=== PATIENT | male | born 1975 ===

== ENCOUNTER → 2020-04-28 08:42 | Outpatient (BNVA) | payer OTHER, SELFPAY | PROVIDERS: Visit Provider Student in an Organized Health Care Education/Training Program | DX: L40.50 Arthropathic psoriasis, unspecified (principal) | CPT/HCPCS: Q3014 ==

== ENCOUNTER 2020-08-18 09:55 | Outpatient (REF) | payer OTHER, SELFPAY ==
--- NOTE | ~2020-08-18 | XR_ITS ---
EXAMINATION: XR HAND, RIGHT CLINICAL INFORMATION: Arthropathic psoriasis. COMPARISON: Right hand and wrist radiographs dated 05/10/2017. TECHNIQUE: PA, lateral, and oblique views of the right hand. FINDINGS: No acute fracture or dislocation. Complete loss of joint space with osseous fusion redemonstrated at the 2nd distal interphalangeal joint. Joint space narrowing redemonstrated at the 5th distal interphalangeal joint, unchanged. No significant marginal osteophytes. No osseous erosion. Normal carpal alignment. No abnormal soft tissue calcification. XR/XR hand RT min 3V IMPRESSION: No acute osseous abnormality. Fusion of the 2nd distal interphalangeal joint and joint space narrowing at the 5th distal interphalangeal joint are unchanged.
[2020-08-18 11:23] LABS: MANUAL DIFF FLAG NO
[2020-08-18 11:36] LABS: Basophils Absolute Auto 0.1 X10*3/uL (0.0-0.2); Basophils Percent Auto 0.8 % (0-2); Eosinophils Absolute Auto 0.2 X10*3/uL (0.0-0.4); Eosinophils Percent Auto 3.5 % (0-4); Hematocrit 44.6 % (42-52); Hemoglobin 14.4 g/dl (14.0-18.0); Imm Gran Abs Auto 0.02 X10*3/uL (0.00-0.03); Imm Gran Pct Auto 0.3 % (0.0-0.4); Lymphocytes Absolute Auto 2.4 X10*3/uL (1.2-4.9); Lymphocytes Percent Auto 39.8 % (20-40); Mean Corpuscular HGB Conc 32.3 g/dl (31.0-36.0); Mean Corpuscular Hemoglobin 29.9 pg (27.0-33.0); Mean Corpuscular Volume 92.5 fL (80-98); Mean Platelet Volume 10.1 fL (9.4-12.4); Monocytes Absolute Auto 0.7 X10*3/uL (0.1-1.2); Monocytes Percent Auto 11.9 % (2-11); Neutrophils Absolute Auto 2.6 X10*3/uL (2.0-8.3); Neutrophils Percent Auto 43.7 % (45-73); Platelet Count 345 X10*3/uL (160-400); Red Blood Count 4.82 X10*6/uL (4.60-5.80)
[2020-08-18 12:36] LABS: Alanine Aminotransferase 22 U/L (0-40); Albumin Level 4.2 g/dL (3.5-5.0); Alkaline Phosphatase 77 U/L (39-117); Anion Gap 14 (12-20); Aspartate Amino Transferase 29 U/L (5-37); Bilirubin Total 0.5 mg/dL (0.0-1.0); Blood Urea Nitrogen 19 mg/dL (9-16); C Reactive Protein 0.36 mg/dL (< or = 0.50); Calcium 9.2 mg/dL (8.4-10.2); Carbon Dioxide 27 mmol/L (22-29); Chloride 103 mmol/L (96-108); Estimated Glomerular Filt Rate 57; Glucose Random 191 mg/dL (60-115); Potassium 4.9 mmol/L (3.3-5.1); Sodium 139 mmol/L (135-145); Total Protein 7.7 g/dL (6.5-8.0)
[2020-08-18 12:44] LABS: Erythrocyte Sedimentation Rate 7 MM/HR (0-15)
== END 2020-08-18 09:56 | disposition home or self-care (01) ==
LOC: HO.LAB 09:55
PROVIDERS: PCP Internal Medicine; Visit Provider Student in an Organized Health Care Education/Training Program
DX: L40.50 Arthropathic psoriasis, unspecified (principal); Z79.899 Other long term (current) drug therapy
CPT/HCPCS: 36415; 73130; 80053; 85025; 85652; 86140; 99212

== ENCOUNTER 2021-03-02 13:03 | Outpatient (REF) | payer OTHER, SELFPAY ==
[2021-03-02 13:12] LABS: MANUAL DIFF FLAG NO
[2021-03-02 13:19] LABS: Basophils Percent Auto 0.7 % (0-2); Eosinophils Absolute Auto 0.2 X10*3/uL (0.0-0.4); Eosinophils Percent Auto 3.5 % (0-4); Hematocrit 41.7 % (42.0-52.0); Hemoglobin 13.7 g/dl (14.0-18.0); Imm Gran Abs Auto 0.01 X10*3/uL (0.00-0.03); Imm Gran Pct Auto 0.2 % (0.0-0.4); Lymphocytes Absolute Auto 2.2 X10*3/uL (1.2-4.9); Lymphocytes Percent Auto 37.2 % (20-40); Mean Corpuscular HGB Conc 32.9 g/dl (31.0-36.0); Mean Corpuscular Hemoglobin 29.7 pg (27.0-33.0); Mean Corpuscular Volume 90.3 fL (80.0-98.0); Mean Platelet Volume 9.2 fL (9.4-12.4); Monocytes Absolute Auto 0.7 X10*3/uL (0.1-1.2); Monocytes Percent Auto 11.4 % (2-11); Neutrophils Absolute Auto 2.79 x10*3/uL (2.0-8.3); Platelet Count 325 X10*3/uL (160-400); Red Blood Count 4.62 X10*6/uL (4.60-5.80); Red Cell Distribution Width 14.6 % (11.0-16.0); White Blood Count 5.9 X10*3/uL (4.8-10.8)
[2021-03-02 13:51] LABS: Alanine Aminotransferase 45 U/L (0-40); Albumin Level 4.2 g/dL (3.5-5.0); Alkaline Phosphatase 69 U/L (39-117); Anion Gap 12 (12-20); Aspartate Amino Transferase 44 U/L (5-37); Bilirubin Total 0.8 mg/dL (0.0-1.0); Blood Urea Nitrogen 15 mg/dL (9-16); C Reactive Protein 0.22 mg/dL (< or = 0.50); Calcium 9.6 mg/dL (8.4-10.2); Carbon Dioxide 27 mmol/L (22-29); Chloride 102 mmol/L (96-108); Estimated Glomerular Filt Rate > 60; Glucose Random 225 mg/dL (60-115); Potassium 4.7 mmol/L (3.3-5.1); Sodium 136 mmol/L (135-145); Total Protein 7.7 g/dL (6.5-8.0)
[2021-03-02 14:15] LABS: Erythrocyte Sedimentation Rate 9 MM/HR (0-15)
== END 2021-03-02 13:04 | disposition home or self-care (01) ==
LOC: HO.LAB 13:03
PROVIDERS: Visit Provider Nurse Practitioner Family
DX: L40.50 Arthropathic psoriasis, unspecified (principal)
CPT/HCPCS: 36415; 80053; 85025; 85652; 86140

== ENCOUNTER → 2021-03-03 09:34 | Outpatient (BNVA) | payer OTHER, SELFPAY | PROVIDERS: PCP Internal Medicine; Visit Provider Nurse Practitioner Family | DX: L40.9 Psoriasis, unspecified (principal); L40.50 Arthropathic psoriasis, unspecified; R74.8 Abnormal levels of other serum enzymes | CPT/HCPCS: 90686; 99212 ==

== ENCOUNTER 2021-07-01 09:36 | Outpatient (REF) | payer OTHER, SELFPAY ==
[2021-07-01 10:49] LABS: MANUAL DIFF FLAG NO
[2021-07-01 11:22] LABS: Basophils Absolute Auto 0.1 X10*3/uL (0.0-0.2); Basophils Percent Auto 0.8 % (0-2); Eosinophils Absolute Auto 0.3 X10*3/uL (0.0-0.4); Eosinophils Percent Auto 4.6 % (0-4); Hematocrit 42.5 % (42.0-52.0); Hemoglobin 13.9 g/dl (14.0-18.0); Imm Gran Abs Auto 0.01 X10*3/uL (0.00-0.03); Imm Gran Pct Auto 0.2 % (0.0-0.4); Lymphocytes Absolute Auto 2.3 X10*3/uL (1.2-4.9); Lymphocytes Percent Auto 35.9 % (20-40); Mean Corpuscular HGB Conc 32.7 g/dl (31.0-36.0); Mean Corpuscular Hemoglobin 29.4 pg (27.0-33.0); Mean Corpuscular Volume 89.9 fL (80.0-98.0); Mean Platelet Volume 9.9 fL (9.4-12.4); Monocytes Absolute Auto 0.7 X10*3/uL (0.1-1.2); Monocytes Percent Auto 11.3 % (2-11); Neutrophils Percent Auto 47.2 % (45-73); Platelet Count 354 X10*3/uL (160-400); Red Blood Count 4.73 X10*6/uL (4.60-5.80); Red Cell Distribution Width 13.2 % (11.0-16.0); White Blood Count 6.3 X10*3/uL (4.8-10.8)
[2021-07-01 11:55] LABS: Erythrocyte Sedimentation Rate 12 MM/HR (0-15)
[2021-07-01 11:56] LABS: Alanine Aminotransferase 23 U/L (0-40); Albumin Level 4.2 g/dL (3.5-5.0); Alkaline Phosphatase 68 U/L (39-117); Anion Gap 10 (12-20); Aspartate Amino Transferase 26 U/L (5-37); Bilirubin Total 0.6 mg/dL (0.0-1.0); Blood Urea Nitrogen 17 mg/dL (9-16); C Reactive Protein 0.31 mg/dL (< or = 0.50); Carbon Dioxide 29 mmol/L (22-29); Chloride 103 mmol/L (96-108); Estimated Glomerular Filt Rate > 60; Glucose Random 144 mg/dL (60-115); Potassium 4.3 mmol/L (3.3-5.1); Sodium 138 mmol/L (135-145); Total Protein 7.9 g/dL (6.5-8.0)
== END 2021-07-01 09:37 | disposition home or self-care (01) ==
LOC: HO.LAB 09:36
PROVIDERS: PCP Internal Medicine; Visit Provider Nurse Practitioner Family
DX: L40.50 Arthropathic psoriasis, unspecified (principal); R74.8 Abnormal levels of other serum enzymes; Z79.899 Other long term (current) drug therapy
CPT/HCPCS: 36415; 80053; 85025; 85652; 86140; 99212

== ENCOUNTER 2022-01-31 09:57 | Outpatient (REF) | payer OTHER, SELFPAY ==
[2022-01-31 10:41] LABS: MANUAL DIFF FLAG NO
[2022-01-31 10:43] LABS: Basophils Percent Auto 0.7 % (0-2); Eosinophils Absolute Auto 0.2 X10*3/uL (0.0-0.4); Eosinophils Percent Auto 3.2 % (0-4); Hematocrit 40.9 % (42.0-52.0); Hemoglobin 13.6 g/dl (14.0-18.0); Imm Gran Abs Auto 0.01 X10*3/uL (0.00-0.03); Imm Gran Pct Auto 0.2 % (0.0-0.4); Lymphocytes Absolute Auto 2.4 X10*3/uL (1.2-4.9); Lymphocytes Percent Auto 40.1 % (20-40); Mean Corpuscular HGB Conc 33.3 g/dl (31.0-36.0); Mean Corpuscular Hemoglobin 30.2 pg (27.0-33.0); Mean Corpuscular Volume 90.7 fL (80.0-98.0); Mean Platelet Volume 9.7 fL (9.4-12.4); Monocytes Absolute Auto 0.8 X10*3/uL (0.1-1.2); Neutrophils Absolute Auto 2.5 x10*3/uL (2.0-8.3); Neutrophils Percent Auto 41.8 % (45-73); Platelet Count 325 X10*3/uL (160-400); Red Blood Count 4.51 X10*6/uL (4.60-5.80); Red Cell Distribution Width 12.8 % (11.0-16.0)
[2022-01-31 11:15] LABS: Alanine Aminotransferase 22 U/L (0-40); Alkaline Phosphatase 73 U/L (39-117); Anion Gap 15 (12-20); Aspartate Amino Transferase 26 U/L (5-37); Bilirubin Total 0.2 mg/dL (0.0-1.0); Blood Urea Nitrogen 15 mg/dL (9-16); C Reactive Protein 0.34 mg/dL (< or = 0.50); Carbon Dioxide 25 mmol/L (22-29); Chloride 101 mmol/L (96-108); Estimated Glomerular Filt Rate > 60; Glucose Random 233 mg/dL (60-115); Potassium 4.5 mmol/L (3.3-5.1); Sodium 136 mmol/L (135-145); Total Protein 7.2 g/dL (6.5-8.0)
[2022-01-31 11:27] LABS: Erythrocyte Sedimentation Rate 10 MM/HR (0-15)
== END 2022-01-31 09:58 | disposition home or self-care (01) ==
LOC: HO.10HDL 09:57
PROVIDERS: Visit Provider Nurse Practitioner Family
DX: L40.50 Arthropathic psoriasis, unspecified (principal); Z79.899 Other long term (current) drug therapy
CPT/HCPCS: 36415; 80053; 85025; 85652; 86140

== ENCOUNTER → 2022-07-06 09:20 | Outpatient (BNVA) | payer OTHER, SELFPAY | PROVIDERS: PCP Internal Medicine; Visit Provider Nurse Practitioner Family | DX: Z13.89 Encounter for screening for other disorder (principal) ==

== ENCOUNTER 2022-12-12 09:06 | Outpatient (AMB) | payer OTHER, SELFPAY ==
--- NOTE | 2022-12-12 09:03 | A.OFFVIS_ITS ---
Intake Vital Signs 12/12/22 09:09 Height 5 ft 9 in Weight 201 lb 15.095 oz BMI 29.8 BP 140/92 H Blood Pressure Location Rt brachial Position Sitting Pulse 69 Pulse Source Pulse Oximeter Temp 97.2 F Temp Source Skin Pulse Oximetry (%) 98 Oxygen Delivery Method Room Air Intake Visit Reasons: Psoriasis Intake Note: Here for psoriasis follow up Security Systems Administrator Required: No Accompanied by: Self / Same As Patient Allergies No Known Allergies Allergy (Verified 12/12/22 09:12) Medication List - Last Reconciled 12/12/22 by Jason Odonnell MD cetirizine (Zyrtec) 10 mg PO DAILY PRN etanercept (Enbrel SureClick) 50 mg subcut QWEEK fluticasone propionate 50 mcg/actuation 1 spray intranasal DAILY PRN hydrocortisone 2.5% 1 appl topical BID PRN insulin lispro (Humalog U-100 Insulin) 5 units continuous subcutaneous infusion .pump levothyroxine (Synthroid) 88 mcg PO DAILY lisinopril 20 mg PO DAILY naproxen sodium (Aleve) 220 mg PO BID PRN simvastatin 10 mg PO DAILY HPI HPI Comments History of Present Illness Details The patient returns for evaluation of his psoriatic arthritis. He had last seen [facility] in June. He remains on Enbrel 50 mg weekly. In general this has done well at relieving his pain. He does occasionally take Aleve but has not needed any in the last few months. He had some dry scaling scale in the dorsum of his MCP regions. This is thought to be psoriasis. It is subsiding with some topical corticosteroids. He does not seem to have any side effects with the Enbrel. At his last visit he was having some testicular pain but that subsided. [facility] Medical History Psoriatic arthritis Surgical History History of ankle surgery Family History Father CVD (cardiovascular disease) Arthritis of knee Hypertension Social History Alcohol intake: current Patient Tobacco Use Status: Never used Tobacco Review of Systems Const Details: Negative for appetite change, weight change, fever, chills, malaise and fatigue Eyes Details: Negative for vision change, dry eyes,headaches and dizziness GI Details: Negative indigestion/heartburn, nausea, abdominal pain, bowel changes, diarrhea, constipation and bloody stool. Details: Negative for dysuria, hematuria, nocturia, decreased force/flow and genital discharge Skin/Breast Details: Negative for itching, rash, hives, Raynaud's symptoms, sun sensitivity, and skin cancer Herman/Lymph Details: Negative for excessive bruising or bleeding. Physical Exam Vital Signs: Last Vital Signs Temp 97.2 F 12/12/22 09:09 Pulse 69 12/12/22 09:09 BP 140/92 H 12/12/22 09:09 Pulse Ox 98 12/12/22 09:09 Oxygen Delivery Method Room Air 12/12/22 09:09 BMI result Body Mass Index 29.8 APPEARANCE: Patient in no acute distress EYES no redness, pupils equal and reactive to light, eyelids normal EXTREMITIES: No edema, no calf tenderness, normal peripheral pulses. . SKIN: There is some dry and slightly scaly skin over the 2nd through 4th MCPs in the right hand. The skin does not look red. There is no cracking in the area. He does have dystrophic nail changes in all of the toes except for the right 3rd. The nails on the hands look normal. ?? JOINT EXAM:?? Cervical Spine:? Full range of motion without pain; no tenderness. Thoracic Spine:? No scoliosis.? No tenderness on palpation. Lumbar Spine:? Alignment normal.? Full range of motion without pain, no tenderness. Hands:? Right: Slight nontender bony enlargement at the thumb IP joint and the 2nd and 5th D IP joints. Other joints have pain-free range of motion without swelling. Left: Normal pain-free range of motion without tenderness, swelling, increased warmth or erythema. Able to make a full fist and has a good children's minister strength. Wrists:? Normal pain-free range of motion without tenderness, swelling, increased warmth or erythema. ? Elbows: Normal pain-free range of motion without tenderness, swelling, increased warmth or erythema. Shoulders:? Full range of motion without pain. No tenderness, weakness, swelling, increased warmth or erythema. Hips:? Full range of motion without pain. Hip bursa:? No tenderness. Knees:? Normal pain-free range of motion without tenderness, swelling, increased warmth or erythema.? There is no effusion or crepitation Ankles:? Normal pain-free range of motion without tenderness, swelling, incre ased warmth or erythema. Feet:? Mild nontender bony enlargement at the 1st MTP joints. This is a bit more prominent in the left 1st MTP. Other joints of feet have normal pain-free range of motion without tenderness, swelling, increased warmth or erythema. Results Reviewed Results Reviewed: Laboratory Tests 01/31/22 01/31/22 01/31/22 10:00 10:00 10:00 WBC 6.0 Hgb 13.6 L ESR 10 Creatinine 1.23 C-Reactive Protein 0.34 Assessment & Plan Assessment & Plan (1) Psoriatic arthritis: Comment: Positive rheumatoid factor, physical presentation was thought to be more consistent with psoriatic arthritis. Diagnosed and started on Enbrel May 2014. Code(s): L40.50 - Arthropathic psoriasis, unspecified (2) Long-term use of immunosuppressant medication: Code(s): Z79.60 - superintendent container terminal (current) use of unspecified immunomodulators and immunosuppressants Plan Psoriatic arthritis with no real signs of active inflammation currently. There may be some minimal OA in a few of the interphalangeal joints but they are not tender today. This scaling on the tip border dorsum of the hand is suggestive of some psoriasis but minimal at present. I think he should continue with the Enbrel as above. We will check hepatitis serologies, sed rate, CBC and T spot testing. If he needs a PA on the Enbrel we will be able to do it if he gets the testing done today. He does live in the [facility] so coming here is a rather long travel. 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 I gave him the name of the [facility] group and he will look into that. Otherwise a return visit to see us in about a year would be reasonable. Orders: Orders C Reactive Protein Today L40.50 - Arthropathic psoriasis, unspecified, Z79.60 - superintendent container terminal (current) use of unspecified immunomodulators and immunosuppressants Complete Blood Count Auto Diff Today L40.50 - Arthropathic psoriasis, unspecified, Z79.60 - care home (current) use of unspecified immunomodulators and immunosuppressants Erythrocyte Sedimentation Rate Today L40.50 - Arthropathic psoriasis, unspecified, Z79.60 - superintendent container terminal (current) use of unspecified immunomodulators and immunosuppressants Hepatitis A,B,C Profile Today L40.50 - Arthropathic psoriasis, unspecified, Z79.60 - superintendent container terminal (current) use of unspecified immunomodulators and immunosuppressants T Spot TB Today L40.50 - Arthropathic psoriasis, unspecified, Z79.60 - superintendent container terminal (current) use of unspecified immunomodulators and immunosuppressants Coding Level of Care Code Est Pt Level 3 (75672) Diagnoses Psoriatic arthritis L40.50 Long-term use of immunosuppressant medication Z79.60
[2022-12-12 09:09] VITALS: BP 140/92; PULSE 69; TEMP 36.2; O2SAT 98; BMI 29.8
== END 2022-12-12 09:39 | disposition home or self-care (01) ==
PROVIDERS: PCP Internal Medicine; Visit Provider Internal Medicine Rheumatology
DX: L40.50 Arthropathic psoriasis, unspecified (principal); Z79.60 Long term (current) use of unspecified immunomodulators and immunosuppressants
CPT/HCPCS: 99213

== ENCOUNTER → 2022-12-12 09:06 | Outpatient (BNVA) | payer OTHER, SELFPAY | PROVIDERS: PCP Internal Medicine; Visit Provider Internal Medicine Rheumatology ==

== ENCOUNTER 2022-12-12 09:42 | Outpatient (REF) | payer OTHER, SELFPAY ==
[2022-12-12 11:17] LABS: MANUAL DIFF FLAG NO
[2022-12-12 11:27] LABS: Basophils Percent Auto 0.5 % (0-2); Eosinophils Absolute Auto 0.2 X10*3/uL (0.0-0.4); Eosinophils Percent Auto 2.5 % (0-4); Hematocrit 41.4 % (42.0-52.0); Hemoglobin 13.5 g/dl (14.0-18.0); Imm Gran Abs Auto 0.01 X10*3/uL (0.00-0.03); Imm Gran Pct Auto 0.1 % (0.0-0.4); Lymphocytes Absolute Auto 2.2 X10*3/uL (1.2-4.9); Lymphocytes Percent Auto 28.7 % (20-40); Mean Corpuscular HGB Conc 32.6 g/dl (31.0-36.0); Mean Corpuscular Hemoglobin 29.9 pg (27.0-33.0); Mean Corpuscular Volume 91.8 fL (80.0-98.0); Mean Platelet Volume 10.3 fL (9.4-12.4); Monocytes Absolute Auto 0.8 X10*3/uL (0.1-1.2); Monocytes Percent Auto 10.4 % (2-11); Neutrophils Absolute Auto 4.3 x10*3/uL (2.0-8.3); Neutrophils Percent Auto 57.8 % (45-73); Platelet Count 358 X10*3/uL (160-400); Red Blood Count 4.51 X10*6/uL (4.60-5.80); Red Cell Distribution Width 13.2 % (11.0-16.0); White Blood Count 7.5 X10*3/uL (4.8-10.8)
[2022-12-12 11:41] LABS: C Reactive Protein 0.64 mg/dL (< or = 0.50)
[2022-12-12 12:10] LABS: Erythrocyte Sedimentation Rate 9 MM/HR (0-15)
[2022-12-12 12:14] LABS: HBS Num1 0.96 mIU/mL (0-7.99); HBc Num1 0.17 S/CO (0.00-0.79); HBsAGNum1 0.48 S/CO (0.00-0.99); Hepatitis B Core Antibody Nonreactive (Nonreactive); Hepatitis B Surface Antigen Negative (Negative); ~HepC Num1 0.12 S/CO (0.00-0.79); ~Hepatitis A Antibody IgM Nonreactive (Nonreactive); ~Hepatitis B Surface Antibody NONREACTIVE (Nonreactive); ~Hepatitis C Antibody Nonreactive (Nonreactive)
[2022-12-14 21:13] LABS: TS Negative Control Passed; TS Panel A 4; TS Panel B 4; TS Positive Control Passed; TSpotTB Negative (Negative)
== END 2022-12-12 09:43 | disposition home or self-care (01) ==
LOC: HO.10HDL 09:42
PROVIDERS: Visit Provider Internal Medicine Rheumatology
DX: Z11.1 Encounter for screening for respiratory tuberculosis (principal); L40.50 Arthropathic psoriasis, unspecified; Z79.60 Long term (current) use of unspecified immunomodulators and immunosuppressants
CPT/HCPCS: 36415; 85025; 85652; 86140; 86481; 86704; 86706; 86709; 86803; 87340

== ENCOUNTER 2023-08-08 11:13 | Outpatient (AMB) | payer OTHER, SELFPAY ==
--- NOTE | 2023-08-08 11:27 | A.OFFVIS_ITS ---
Intake Vital Signs 08/08/23 11:35 Height 5 ft 9 in Weight 203 lb 4.259 oz BMI 30.0 BP 102/80 Blood Pressure Location Rt brachial Position Sitting Pulse 73 Pulse Source Pulse Oximeter Temp 97.5 F Temp Source Skin Pulse Oximetry (%) 100 Oxygen Delivery Method Room Air Intake Visit Reasons: PsA/CM Intake Note: Patient last seen 12/12/[address] Odonnell, presents today for follow up and test results. Would like refills on Enbrel. Closed Circuit Screen Watcher Required: No Accompanied by: Self / Same As Patient Allergies No Known Allergies Allergy (Verified 08/08/23 11:36) HPI HPI Comments History of Present Illness Details Mr. Christian 47 yoN returns for evaluation of his psoriatic arthritis. He had last seen 11/2022. He remains on Enbrel 50 mg weekly. In general this has done well at relieving his pain. He does occasionally take Aleve but has not needed any in the last few months. He had some dry scaling scale in the dorsum of his MCP regions that has reolved since last visit with the use of topical corticosteroids. He denies side effects with the Enbrel. He has been on Enbrel since 2015. In the initial stages his symptoms were felt in feet very swollen, hands and lower back stiffness. [facility] Medical History Psoriatic arthritis Surgical History History of ankle surgery Family History Father CVD (cardiovascular disease) Arthritis of knee Hypertension Social History Alcohol intake: current Patient Tobacco Use Status: Never used Tobacco Review of Systems Const All systems reviewed & are unremarkable except as noted in HPI and below Physical Exam Vital Signs: Last Vital Signs Temp 97.5 F 08/08/23 11:35 Pulse 73 08/08/23 11:35 BP 102/80 08/08/23 11:35 Pulse Ox 100 08/08/23 11:35 Oxygen Delivery Method Room Air 08/08/23 11:35 BMI result Body Mass Index 30.0 APPEARANCE: Patient in no acute distress EYES no redness, pupils equal and reactive to light, eyelids normal EXTREMITIES: No edema, no calf tenderness, normal peripheral pulses. . SKIN: There is some dry and slightly scaly skin over the 2nd through 4th MCPs in the right hand. The skin does not look red. There is no cracking in the area. He does have dystrophic nail changes in all of the toes except for the right 3rd. The nails on the hands look normal. ?? JOINT EXAM:?? Cervical Spine:? Full range of motion without pain; no tenderness. Thoracic Spine:? No scoliosis.? No tenderness on palpation. Lumbar Spine:? Alignment normal.? Full range of motion without pain, no tenderness. Hands:? Right: Slight nontender bony enlargement at the thumb IP joint and the 2nd and 5th D IP joints. Other joints have pain-free range of motion without swelling. Left: Normal pain-free range of motion without tenderness, swelling, increased warmth or erythema. Able to make a full fist and has a good editorial assistant strength. Wrists:? Normal pain-free range of motion without tenderness, swelling, increased warmth or erythema. ? Elbows: Normal pain-free range of motion without tenderness, swelling, increased warmth or erythema. Shoulders:? Full range of motion without pain. No tenderness, weakness, swelling, increased warmth or erythema. Hips:? Full range of motion without pain. Hip bursa:? No tenderness. Knees:? Normal pain-free range of motion without tenderness, swelling, increased warmth or erythema.? There is no effusion or crepitation Ankles:? Normal pain-free range of motion without tenderness, swelling, increased warmth or erythema. Feet:? Mild nontender bony enlargement at the 1st MTP joints. This is a bit more prominent in the left 1st MTP. Other joints of feet have normal pain-free range of motion without tenderness, swelling, increased warmth or erythema. Assessment & Plan Assessment & Plan (1) Psoriatic arthritis: Comment: Positive rheumatoid factor, physical presentation was thought to be more consistent with psoriatic arthritis. Diagnosed and started on Enbrel May 2014. 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 He is doing well with the Enbrel. There is mild OA in a few of the interphalangeal joints but they are not tender today. We will continue with the Enbrel 50 mg QW. We discussed some disoders that can be a part of PsA - Uveiitis, GI symtptoms. #Longterm Use: He is due for updated labs. We will check hepatitis serologies, sed rate, CBC ESR and CMP. Patient knows to hold Enbrel in the event of infection, fevers, surgery and non-healing wounds. 6 months F/u Orders: Orders Vitamin D 25-OH (D2 and D3) Today E55.9 - Vitamin D deficiency, unspecified Comprehensive Met. Panel 6 Months L40.50 - Arthropathic psoriasis, unspecified, Z79.60 - USP (current) use of unspecified immunomodulators and immunosuppressants C Reactive Protein 6 Months L40.50 - Arthropathic psoriasis, unspecified, Z79.60 - intermediate school teacher (current) use of unspecified immunomodulators and immunosuppressants Erythrocyte Sedimentation Rate 6 Months L40.50 - Arthropathic psoriasis, unspecified, Z79.60 - intermediate school teacher (current) use of unspecified immunomodulators and immunosuppressants Complete Blood Count Auto Diff 6 Months L40.50 - Arthropathic psoriasis, unspecified, Z79.60 - USP (current) use of unspecified immunomodulators and immunosuppressants Medications: Refilled etanercept (Enbrel SureClick) 50 mg subcut QWEEK 4 mL 5RF L40.50 - Arthropathic psoriasis, unspecified Coding Level of Care Code Est Pt Level 3 (80444) Diagnoses Psoriatic arthritis L40.50 Long-term use of immunosuppressant medication Z79.60
[2023-08-08 11:35] VITALS: BP 102/80; PULSE 73; TEMP 36.4; O2SAT 100
== END 2023-08-08 12:12 | disposition home or self-care (01) ==
PROVIDERS: PCP Internal Medicine; Visit Provider Nurse Practitioner Family
DX: L40.50 Arthropathic psoriasis, unspecified (principal); Z79.60 Long term (current) use of unspecified immunomodulators and immunosuppressants
CPT/HCPCS: 99213

== ENCOUNTER 2023-08-08 11:13 | Outpatient (REF) | payer OTHER, SELFPAY ==
[2023-08-08 12:31] LABS: MANUAL DIFF FLAG NO
[2023-08-08 12:57] LABS: Basophils Absolute Auto 0.1 X10*3/uL (0.0-0.2); Basophils Percent Auto 0.8 % (0-2); Eosinophils Absolute Auto 0.3 X10*3/uL (0.0-0.4); Eosinophils Percent Auto 4.2 % (0-4); Hematocrit 44.7 % (42.0-52.0); Hemoglobin 14.8 g/dl (14.0-18.0); Imm Gran Abs Auto 0.01 X10*3/uL (0.00-0.03); Imm Gran Pct Auto 0.2 % (0.0-0.4); Lymphocytes Absolute Auto 2.1 X10*3/uL (1.2-4.9); Lymphocytes Percent Auto 33.6 % (20-40); Mean Corpuscular HGB Conc 33.1 g/dl (31.0-36.0); Mean Corpuscular Hemoglobin 29.4 pg (27.0-33.0); Mean Corpuscular Volume 88.7 fL (80.0-98.0); Mean Platelet Volume 10.2 fL (9.4-12.4); Monocytes Absolute Auto 0.8 X10*3/uL (0.1-1.2); Monocytes Percent Auto 12.3 % (2-11); Neutrophils Percent Auto 48.9 % (45-73); Platelet Count 326 X10*3/uL (160-400); Red Blood Count 5.04 X10*6/uL (4.60-5.80); Red Cell Distribution Width 12.7 % (11.0-16.0); White Blood Count 6.2 X10*3/uL (4.8-10.8)
[2023-08-08 13:21] LABS: Alanine Aminotransferase 18 U/L (0-40); Albumin Level 4.1 g/dL (3.5-5.0); Alkaline Phosphatase 80 U/L (39-117); Anion Gap 12 (12-20); Aspartate Amino Transferase 24 U/L (5-37); Bilirubin Total 0.7 mg/dL (0.0-1.0); Blood Urea Nitrogen 13 mg/dL (9-16); C Reactive Protein 0.37 mg/dL (< or = 0.50); Carbon Dioxide 27 mmol/L (22-29); Chloride 105 mmol/L (96-108); Estimated Glomerular Filt Rate > 60; Glucose Random 140 mg/dL (60-115); Potassium 4.4 mmol/L (3.3-5.1); Sodium 140 mmol/L (135-145); Total Protein 8.3 g/dL (6.5-8.0)
[2023-08-08 13:36] LABS: Erythrocyte Sedimentation Rate 10 MM/HR (0-15)
[2023-08-09 13:18] LABS: Prot Elec - Albumin 4.4 g/dL (3.8-4.8); Prot Elec - Alpha1 0.3 g/dL (0.2-0.3); Prot Elec - Alpha2 0.9 g/dL (0.5-0.9); Prot Elec - Beta 1 0.4 g/dL (0.4-0.6); Prot Elec - Beta 2 0.5 g/dL (0.2-0.5); Prot Elec - Gamma 1.7 g/dL (0.8-1.7); Prot Elec - Total Protein 8.1 g/dL (6.1-8.1)
[2023-08-09 17:49] LABS: IgA 326 mg/dL (47-310); IgG 1743 mg/dL (600-1640); IgM 84 mg/dL (50-300)
[2023-08-11 17:02] LABS: Vitamin D 25-OH, D2 <4 ng/mL; Vitamin D 25-OH, D3 17 ng/mL; Vitamin D 25-OH, Total 17 ng/mL (30-100)
== END 2023-08-08 11:14 | disposition home or self-care (01) ==
LOC: HO.LAB 11:13
PROVIDERS: PCP Internal Medicine; Visit Provider Nurse Practitioner Family
DX: L40.50 Arthropathic psoriasis, unspecified (principal); R74.8 Abnormal levels of other serum enzymes; E55.9 Vitamin D deficiency, unspecified; Z79.60 Long term (current) use of unspecified immunomodulators and immunosuppressants
CPT/HCPCS: 36415; 80053; 82306; 82784; 84165; 85025; 85652; 86140

== ENCOUNTER 2024-02-07 08:57 | Outpatient (AMB) | payer OTHER, SELFPAY ==
--- NOTE | 2024-02-07 09:01 | A.OFFVIS_ITS ---
Vital Signs 02/07/24 09:06 Height 5 ft 9 in Weight 213 lb 6.519 oz BMI 31.5 BP 120/70 Blood Pressure Location Lt brachial Position Sitting Pulse 71 Pulse Source Pulse Oximeter Pulse Oximetry (%) 99 Oxygen Delivery Method Room Air Intake Visit Reasons: PsA/PsO Enbrel/LM Intake Note: Patient presents for PsA. Allergies No Known Allergies Allergy (Verified 02/07/24 09:04) Medication List - Last Reconciled 02/07/24 by Anna Manzano MD cetirizine (Zyrtec) 10 mg PO DAILY PRN etanercept (Enbrel SureClick) 50 mg subcut QWEEK fluticasone propionate 50 mcg/actuation 1 spray intranasal DAILY PRN hydrocortisone 2.5% 1 appl topical BID PRN insulin lispro (Humalog U-100 Insulin) 5 units continuous subcutaneous infusion .pump levothyroxine (Synthroid) 88 mcg PO DAILY lisinopril 10 mg PO DAILY naproxen sodium (Aleve) 220 mg PO BID PRN simvastatin 20 mg PO BEDTIME HPI Comments Details: This is a 48-year-old male with psoriasis and psoriatic arthritis who returns for follow-up. 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 No chemoradiation was needed. He gets active surveillance. States that he is doing reasonably well overall in terms of his psoriasis and psoriatic arthritis. He gets rare flare-ups usually just before his Enbrel shot, intermittent swelling of his fingers and toes. Only minimal psoriasis patches on the dorsum of his hand treated with hydrocortisone cream. 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 Review of Systems [facility] arthralgias, Reports joint swelling and Reports stiffness Physical Exam Vital Signs: Last Vital Signs Pulse 71 02/07/24 09:06 BP 120/70 02/07/24 09:06 Pulse Ox 99 02/07/24 09:06 Oxygen Delivery Method Room Air 02/07/24 09:06 BMI result Body Mass Index 31.5 Const General: cooperative, healthy appearing and comfortable Nutritional Appearance: obese Orientation/consciousness: patient oriented x3 Limitations: no limitations HEENT Head: Yes normocephalic and Yes atraumatic Mouth: moist mucous membranes Resp Effort & Inspection: normal respiratory effort and able to speak in complete sentences Auscultation: clear to auscultation bilaterally Skin Other: Very subtle hypopigmented pinkish rash on dorsum of both hands Neuro General: patient oriented x3 Extrem Other: Subtle osteoarthritic changes of both hands with no active synovitis Normal bilateral hand mud jack nozzleman strength No dactylitis of toes Deformity of right index DIP related to old trauma and infection Assessment & Plan Assessment & Plan (1) Psoriatic arthritis: Comment: +RF+++CCP physical presentation was thought to be more consistent with psoriatic arthritis. Diagnosed and started on Enbrel May 2014. Effective Code(s): L40.50 - Arthropathic psoriasis, unspecified Category: Medical Plan: This is a 48-year-old male with psoriasis and psoriatic arthritis who presents for follow-up. Doing very well on Enbrel 50 mg once weekly Continue with Enbrel 50 mg once weekly Labs labs today Follow-up in 6 months (2) Long-term use of immunosuppressant medication: Code(s): Z79.60 - long term care administrator (current) use of unspecified immunomodulators and immunosuppressants Category: Medical Plan: Side effects of Enbrel were discussed with the patient in detail including increased risk of infection, demyelinating disease, reactivation of latent TB, possible increased risk of solid and skin tumors. Patient fully aware. Advised patient to seek medical care [facility] if patient has an infection and advised patient to stop the medication until the infection is resolved. (3) Immunization counseling: Code(s): Z71.85 - Encounter for immunization safety counseling Category: Medical Plan: Advised patient to get flu vaccine and COVID booster for this season. Get Shingrix vaccines as soon as he is 49 Try to get RSV vaccine No need to hold Enbrel for any of these vaccines Plan I spent 36 minutes reviewing patient's chart, evaluating patient, ordering diagnostic workup, counseling patient and documenting in the chart Orders: Orders Erythrocyte Sedimentation Rate Today L40.50 - Arthropathic psoriasis, unspecified, Z79.60 - long term care administrator (current) use of unspecified immunomodulators and immunosuppressants T Spot TB Today Z11.7 - Encounter for testing for latent tuberculosis infection C Reactive Protein Today L40.50 - Arthropathic psoriasis, unspecified, Z79.60 - long term care administrator (current) use of unspecified immunomodulators and immunosuppressants Complete Blood Count Auto Diff Today L40.50 - Arthropathic psoriasis, unspecified, Z79.60 - long term care administrator (current) use of unspecified immunomodulators and immunosuppressants Comprehensive Met. Panel Today L40.50 - Arthropathic psoriasis, unspecified, Z79.60 - long term care administrator (current) use of unspecified immunomodulators and immunosuppressants Hepatitis A,B,C Profile Today Z11.59 - Encounter for screening for other viral diseases Medications: Refilled etanercept (Enbrel SureClick) 50 mg subcut QWEEK 4 mL 5RF L40.50 - Arthropathic psoriasis, unspecified Coding Level of Care Code Est Pt Level 4 (35957) Complex EM visit Add On G2211 Diagnoses Psoriatic arthritis L40.50 Long-term use of immunosuppressant medication Z79.60 Immunization counseling Z71.85
[2024-02-07 09:06] VITALS: BP 120/70; PULSE 71; O2SAT 99; BMI 31.5
== END 2024-02-07 09:34 | disposition home or self-care (01) ==
PROVIDERS: PCP Internal Medicine; Visit Provider Student in an Organized Health Care Education/Training Program
DX: L40.50 Arthropathic psoriasis, unspecified (principal); Z79.60 Long term (current) use of unspecified immunomodulators and immunosuppressants; Z71.85 Encounter for immunization safety counseling
CPT/HCPCS: 99214; G2211

== ENCOUNTER → 2024-02-07 08:57 | Outpatient (BNVA) | payer OTHER, SELFPAY | PROVIDERS: PCP Internal Medicine; Visit Provider Student in an Organized Health Care Education/Training Program | DX: L40.50 Arthropathic psoriasis, unspecified (principal); L40.9 Psoriasis, unspecified; Z79.60 Long term (current) use of unspecified immunomodulators and immunosuppressants; Z71.85 Encounter for immunization safety counseling | CPT/HCPCS: 99212 ==

== ENCOUNTER 2024-02-07 09:52 | Outpatient (REF) | payer OTHER, SELFPAY ==
[2024-02-07 10:39] LABS: MANUAL DIFF FLAG NO
[2024-02-07 10:43] LABS: Basophils Percent Auto 0.8 % (0-2); Eosinophils Absolute Auto 0.1 X10*3/uL (0.0-0.4); Eosinophils Percent Auto 2.7 % (0-4); Hematocrit 42.8 % (42.0-52.0); Hemoglobin 14.2 g/dl (14.0-18.0); Imm Gran Abs Auto 0.01 X10*3/uL (0.00-0.03); Imm Gran Pct Auto 0.2 % (0.0-0.4); Lymphocytes Absolute Auto 1.8 X10*3/uL (1.2-4.9); Mean Corpuscular HGB Conc 33.2 g/dl (31.0-36.0); Mean Corpuscular Hemoglobin 30.1 pg (27.0-33.0); Mean Corpuscular Volume 90.7 fL (80.0-98.0); Mean Platelet Volume 9.6 fL (9.4-12.4); Monocytes Absolute Auto 0.6 X10*3/uL (0.1-1.2); Monocytes Percent Auto 11.1 % (2-11); Neutrophils Absolute Auto 2.7 x10*3/uL (2.0-8.3); Neutrophils Percent Auto 51.2 % (45-73); Platelet Count 331 X10*3/uL (160-400); Red Blood Count 4.72 X10*6/uL (4.60-5.80); Red Cell Distribution Width 12.7 % (11.0-16.0); White Blood Count 5.2 X10*3/uL (4.8-10.8)
[2024-02-07 11:07] LABS: Alanine Aminotransferase 24 U/L (0-40); Albumin Level 4.1 g/dL (3.5-5.0); Alkaline Phosphatase 74 U/L (39-117); Anion Gap 11 (12-20); Aspartate Amino Transferase 26 U/L (5-37); Bilirubin Total 0.5 mg/dL (0.0-1.0); Blood Urea Nitrogen 24 mg/dL (9-16); C Reactive Protein 0.45 mg/dL (< or = 0.50); Calcium 9.6 mg/dL (8.4-10.2); Carbon Dioxide 27 mmol/L (22-29); Chloride 104 mmol/L (96-108); Estimated Glomerular Filt Rate > 60; Glucose Random 217 mg/dL (60-115); Potassium 4.5 mmol/L (3.3-5.1); Sodium 137 mmol/L (135-145); Total Protein 7.8 g/dL (6.5-8.0)
[2024-02-07 11:17] LABS: HBS Num1 0.61 mIU/mL (0-7.99); HBc Num1 0.12 S/CO (0.00-0.79); HBsAGNum1 0.35 S/CO (0.00-0.99); Hepatitis A Antibody IgM 0.24 Index (0-0.79); Hepatitis B Core Antibody Nonreactive (Nonreactive); Hepatitis B Surface Antigen Negative (Negative); ~HepC Num1 0.14 S/CO (0.00-0.79); ~Hepatitis A Antibody IgM Nonreactive (Nonreactive); ~Hepatitis B Surface Antibody NONREACTIVE (Nonreactive); ~Hepatitis C Antibody Nonreactive (Nonreactive)
[2024-02-07 11:37] LABS: Erythrocyte Sedimentation Rate 11 MM/HR (0-15)
[2024-02-10 17:39] LABS: TS Negative Control Passed; TS Panel A 0; TS Panel B 1; TS Positive Control Passed; TSpotTB Negative (Negative)
== END 2024-02-07 09:53 | disposition home or self-care (01) ==
LOC: HO.10HDL 09:52
PROVIDERS: Visit Provider Student in an Organized Health Care Education/Training Program
DX: L40.50 Arthropathic psoriasis, unspecified (principal); Z79.60 Long term (current) use of unspecified immunomodulators and immunosuppressants; Z11.7 Encounter for testing for latent tuberculosis infection; Z11.59 Encounter for screening for other viral diseases; Z72.89 Other problems related to lifestyle
CPT/HCPCS: 36415; 80053; 85025; 85652; 86140; 86481; 86704; 86706; 86709; 86803; 87340

== ENCOUNTER 2024-09-05 11:52 | Outpatient (REF) | payer OTHER, SELFPAY ==
--- OUTSIDE RECORDS SUMMARY | 2024-09-05 13:23 | XMS_ITS | Patient Health Record ---
Author Organization LOLY MALDONADO MD Address [address] [facility] [address] [place] [address] Care Team Providers Care I&C Tech Name Role Phone LOLY MALDONADO Primary Care Provider [phone] ALLERGIES No Known Allergies REASON FOR REFERRAL Reason new testicular tumor Diagnosis 1 Malignant neoplasm o f descended right testis (C62.11) Referral Organization LOLY MALDONADO MD Referring Provider First Name LOLY Referring Provider Last Name ERICA Referring Provider Speciality Internal edicine Referred Organization [facility] Referred Address [address] [place] [place],[address] Referred Provider Specialty Oncology Referral Priority Routine Reason rt testicular tumor Diagnosis 1 Malignant neoplasm o f descended right testis (C62.11) Referral Organization LOLY MALDONADO MD Referring Provider First Name LOLY Referring Provider Last Name ERICA Referring Provider Speciality Internal edicine Referred Organization [facility] uro logy Referred Address [address],[place], [place],[address],[place] Referred Provider Specialty Urology Referral Priority Routine Reason Apnea at night. Diagnosis 1 Sleep apnea in adult (G47.30) Referral Organization LOLY MALDONADO MD Referring Provider First Name LOLY Referring Provider Last Name ERICA Referring Provider Speciality Internal edicine Referred Organization ENT [facility] Referred Address [address],[place], [place],[address],[place] Referred Provider Specialty Ophthalmolog y, Otology, Laryngology, Rhinology Referral Priority Routine MEDICATIONS Medication SIG (Take, Route, Frequency, Duration) Notes Start Date End Date Status Triamcinolone Acetonide 0.1 % 1 application Externally Twice a day for 30 days 01/08/2024 Active Insulin Regular Human (Conc) 500 UNIT/ML as directed Subcutaneous Active Enbrel 50 MG/ML 1 mL Subcutaneous Active Lisinopril 10 MG 1 tablet Orally Once a day Active Levothyroxine Sodium 88 MCG 1 tablet in the morning on an empty stomach Orally Once a day Active Simvastatin 20 MG 1 tablet in the even ing Orally Once a day Active PROBLEMS Problem Type ICD Code Onset Dates Problem Status W/U Status Risk SNOMED Code Notes Problem 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) Active confirmed Malignant tu mor of undescended testis (572834616) Problem 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) Active confirmed Primary ruddy gnant neoplasm of descended testis (927838676) Problem Hypothyroidism, unspecified (E03.9) Active confirmed Hypothyroidism (19367851) Problem Hydrocele, unspecified (N43.3) Active confirmed Hydrocele (602656323) Problem 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 Temperature 98.3 degrees Fahrenheit 01/08/2024 PT h as been feeling a lag feeling. Oximetry 98 % 01/08/2024 PT has been fee ling a lag feeling. Blood pressure diastolic 90 mm Hg 01/08/2024 PT has been feeling a lag feeling. Height 69 in 01/08/2024 PT has been fee ling a lag feeling. Blood pressure systolic 126 mm Hg 01/08/2024 PT h as been feeling a lag feeling. Weight 206 lbs 01/08/2024 PT has been fee ling a lag feeling. BMI 30.42 kg/m2 01/08/2024 PT has been fee ling a lag feeling. Encounters Encounter Location Date Provider Diagnosis LOLY MALDONADO MD [address] [address] 09/06/2023 LOLY MALDONADO Hydrocele, unspecifi ed N43.3 ; Psoriatic arthritis L40.50 ; Hypothyroidism, unspecified E03.9 and Type 1 diabetes mellitus with proliferative diabetic retinopathy without macular edema, bilateral E10.3593 LOLY MALDONADO MD [address] [address] 09/13/2023 LOLY MALDONADO Malignant neoplasm o f descended right testis C62.11 LOLY ERICA MD [address] [address] 09/22/2023 LOLY MALDONADO Malignant neoplasm o f descended right testis C62.11 and Type 1 diabetes mellitus with proliferative diabetic retinopathy without macular edema, bilateral E10.3593 LOLY MALDONADO MD [address] [address] 10/25/2023 LOLY MALDONADO Malignant neoplasm o f descended right testis C62.11 and Sleep apnea in adult G47.30 LOLY MALDONADO MD [address] [address] 01/08/2024 LOLY MALDONADO Malignant neoplasm o f descended right testis C62.11 ; Type 1 diabetes mellitus with proliferative diabetic retinopathy without macular edema, bilateral E10.3593 ; Hypothyroidism, unspecified E03.9 and Psoriatic arthritis L40.50 LOLY MALDONADO MD [address] [address] 05/03/2024 LOLY MALDONADO MD [address] [place] [phone] 09/21/2023 LOLY MALDONADO MD [address] [address] 11/10/2023 LOLY MALDONADO MD [address] [place] [phone] 11/13/2023 LOLY MALDONADO ASSESSMENTS Encounter Date Diagnosis Assessment Notes Treatment Notes Treatment Clinical Notes Section Notes 09/06/2023 Hydrocele, unspecified (ICD-10 - N43.3) Patient is complaining of lower abdominal pain and testicular swelling. Patient's most likely diagnosis is testicular cancer. There is no evidence of hernia. Patient will get a ultrasound and we will call him back for an earlier appointment if abnormal. Patient will be scheduled for a complete exam in 6 weeks 10/25/2023 Malignant neoplasm of descended right testis (ICD-10 - C62.11) Patient had removal of a testicular tumor most likely a non germ cell malignancy. I have requested the records from [facility] urology. Examination indicates no significant issues since surgery 5 days ago. 10/25/2023 Sleep apnea in adult (ICD-10 - G47.30) Patient wakes up at night unable to breathe. Patient will be referred to ENT 01/08/2024 Malignant neoplasm of descended right testis (ICD-10 - C62.11) Patient had removal of seminoma. Patient now is followed up by [facility] oncology repeat CT scan in January record and consultation is not available to me as yet 09/13/2023 Malignant neoplasm of descended right testis (ICD-10 - C62.11) I informed the patient regarding the likelihood of this being a malignant tumor. Surgery, radiation and chemotherapy was discussed. Patient does need a CT of the abdomen and pelvis and chest x-ray and blood tests including AFP and beta hCG. Patient will be seen in office in september at [facility] in the meanwhile we will stop the workup locally The record of the visit and ultrasound will be sent to [facility]. 09/22/2023 Malignant neoplasm of descended right testis (ICD-10 - C62.11) The patient has a swelling on the right testicle NON germ cell testicular TUMOR most likely benign The consistency is still full but not hard. 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, bilateral (ICD-10 - E10.3593) The patient is followed up at the [facility] blood sugars have been fairly decent and is below 7% 09/06/2023 Psoriatic arthritis (ICD-10 - L40.50) Patient is on Enbrel weekly 09/06/2023 Hypothyroidism, unspecified (ICD-10 - E03.9) Patient is on thyroid replacement therapy 01/08/2024 Hypothyroidism, unspecified (ICD-10 - E03.9) Patient is on thyroid replacement therapy 09/06/2023 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 Seen in the clinic at least 4 times a year. The record will be obtained but be we do not duplicate the care he is receiving excellent care with well-controlled A1c 6 Patient has diabetic retinopathy but I do not believe it is proliferative seen by ophthalmology once a year only 01/08/2024 Psoriatic arthritis (ICD-10 - L40.50) Patient is on embrl. patient has a small rash on the dorsum of the hand left. A prescription for steroid cream is given to the patient 09/06/2023 Other Time spent in encounter: 40 minutes more then 50% time spent as belowxxxxxDecision making points;: Previsit revew of relevant medical record, obtaining and reviewed old data separately ,obtained history, performing a medically appropriate examination and evaluation, counseling and educating patient, monitoring medication, tests or procedures, documenting clinical information in the medical record, independently interpreting results and communicating the results with the patientxxxxxThis dictation was done with [employer] voice dictation system for compiling the notes. There may be errors in punctuation, grammar and spelling errors, that are unintentional that may have been missed during final editing of the document 09/13/2023 Other Time spent in encounter: 35 minutes more then 50% time spent as belowxxxxxDecision making points;: Previsit revew of relevant medical record, obtaining and reviewed old data separately ,obtained history, performing a medically appropriate examination and evaluation, counseling and educating patient, monitoring medication, tests or procedures, documenting clinical information in the medical record, independently interpreting results and communicating the results with the patientxxxxxThis dictation was done with [employer] voice dictation system for compiling the notes. There may be errors in punctuation, grammar and spelling errors, that are unintentional that may have been missed during final editing of the document 09/22/2023 Other Time spent in encounter: 30 minutesmore then 50% time spent as below And spent discussing the blood test, CAT scan and further plan of action xxxxxDecision making points;: Previsit revew of relevant medical record, obtaining and reviewed old data separately ,obtained history, performing a medically appropriate examination and evaluation, counseling and educating patient, monitoring medication, tests or procedures, documenting clinical information in the medical record, independently interpreting results and communicating the results with the patientxxxxxThis dictation was done with [employer] voice dictation system for compiling the notes. There may be errors in punctuation, grammar and spelling errors, that are unintentional that may have been missed during final editing of the document 10/25/2023 Other Time spent in encounter: 20 minutes more then 50% time spent as belowxxxxxDecision making points;: Previsit revew of relevant medical record, obtaining and reviewed old data separately ,obtained history, performing a medically appropriate examination and evaluation, counseling and educating patient, monitoring medication, tests or procedures, documenting clinical information in the medical record, independently interpreting results and communicating the results with the patientxxxxxThis dictation was done with [employer] voice dictation system for compiling the notes. There may be errors in punctuation, grammar and spelling errors, that are unintentional that may have been missed during final editing of the document 01/08/2024 Other Time spent in encounter: more then 50% time spent as belowxxxxxDecision making points;: Previsit revew of relevant medical record, obtaining and reviewed old data separately ,obtained history, performing a medically appropriate examination and evaluation, counseling and educating patient, monitoring medication, tests or procedures, documenting clinical information in the medical record, independently interpreting results and communicating the results with the patientxxxxxThis dictation was done with [employer] voice dictation system for compiling the notes. There may be errors in punctuation, grammar and spelling errors, that are unintentional that may have been missed during final editing of the document PLAN OF TREATMENT Pending Test Test Name Order Date CT Scan : Abd & Pelvis with IV and oral contrast 09/13/2023 Chest X-ray PA and lateral 09/13/2023 AFP, Serum, Tumor Marker 09/13/2023 hCG,Beta Subunit,Qnt,Serum 09/13/2023 CBC With Differential/Platelet Chem-Comprehensive 09/13/2023 Ultrasound : Scrotum 09/06/2023 Insurance Providers Payer Name Payer Address Payer Phone Subscriber Number Group Number Insured Name Patient Relationship to Insured Coverage Start Date Coverage End Date [facility] [address] SHARYNBRANDIGonzalo ASHLYN [place] [phone] [id number] Dennis Christian Self - patient is the insured [facility] Medicaid [address] ASHLYN FREY [id number] Dennis Christian Self - patient is the insured MEDICAL (GENERAL) HISTORY Medical History History ICD Code bre 1 dm shawna dolan age 10 insulin pump Omni pod with Dexcom CGM psoratic arthritis Surgical History Surgery Date(Month/Year) Fracture right ankle/plate rt ankle 1993 sabacious cyst of the scalp Hospitalization History Reason Date(Month/Year) staph infectio 2015
--- OUTSIDE RECORDS SUMMARY | 2024-09-05 13:23 | XMS_ITS ---
Author Organization EMILE MALDONADO MD Address [address] [address] Care Team Providers Care Cone Cleaner Name Role Phone ERICA EMILE Primary Care Provider [phone] REASON FOR VISIT 3 month f/u MEDICATIONS Medication SIG (Take, Route, Frequency, Duration) [...] even ing Orally Once a day Active VITAL SIGNS Temperature 98.3 degrees Fahrenheit 01/08/20 24 Blood pressure systolic 126 mm Hg 01/08/20 24 Blood pressure diastolic 90 mm Hg 024 Heart Rate 77 /min 01/08/2024 Height 69 in 01/08/2024 Weight 206 lbs 01/08/2024 BMI 30.42 kg/m2 01/08/2024 Oximetry 98 % 01/08/2024 PT has been feeling a lag feeling. Encounters Encounter Location Date Provider Diagnosis EMILE MALDONADO MD [address] [address] 01/08/2024 EMILE MALDONADO Malignant neoplasm o f descended right testis C62.11 ; Type 1 diabetes mellitus with proliferative diabetic retinopathy without macular edema, bilateral E10.3593 ; Hypothyroidism, unspecified E03.9 and Psoriatic arthritis L40.50 ASSESSMENTS Encounter Date Diagnosis Assessment Notes Treatment Notes Treatment Clinical Notes Section Notes 01/08/2024 Malignant neoplasm of descended right testis (ICD-10 - C62.11) Patient had removal of seminoma. 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 blood sugars have been fairly decent and is below 7% 01/08/2024 Hypothyroidism, unspecified (ICD-10 - E03.9) Patient is on thyroid replacement therapy 01/08/2024 Psoriatic arthritis (ICD-10 - L40.50) Patient is on embrl. patient has a small rash on the dorsum of the hand left. A prescription for steroid cream is given to the patient 01/08/2024 Other Time spent in encounter: more [...] with the patientxxxxxThis dictation was done with [employer] voice dictation system for compiling the notes. There may be errors in punctuation, grammar and spelling errors, that are unintentional that may have been missed during final editing of the document PLAN OF TREATMENT Medication Medication Name Sig Start Date Stop Date Notes Triamcinolone Acetonide 0.1 % 1 applicat ion Externally Twice a day for 30 days 01/08/2024 Treatment Notes Assessment Notes Malignant neoplasm of descen ded right testis Patient had removal of seminoma. Patient now is followed up by [facility] oncology repeat CT scan in January record and consultation is not available to me as yet Type 1 diabetes mellitus wit h proliferative diabetic retinopathy without macular edema, bilateral The patient is followed up at the [facility] blood sugars have been fairly decent and is below 7% Hypothyroidism, unspecified Patient is o n thyroid replacement therapy Psoriatic arthritis Patient is on embrl. patient has a small rash on the dorsum of the hand left. A prescription for steroid cream is given to the patient Other Time spent in encoun ter: more then 50% time spent as belowxxxxxDecision making points;: Previsit revew of relevant medical record, obtaining and reviewed old data separately ,obtained history, performing a medically appropriate examination and evaluation, counseling and educating patient, monitoring medication, tests or procedures, documenting clinical information in the medical record, independently interpreting results and communicating the results with the patientxxxxxThis dictation was done with [employer] voice dictation system for compiling the notes. There may be errors in punctuation, grammar and spelling errors, that are unintentional that may have been missed during final editing of the document Next Appt Details Follow Up: 4 Months, Reason: fu Progress Notes * Yehuda CHRISTIANOB:[birth year] (48 yo M)Acc No.[id number]:01/08/2024 Progress Notes Patient:??GABY Markravindra moreno Provider:??Emile Maldonado MD :1975?Age:48 Y?Sex:Armando le Date:01/08/2024 Address:[address] Subjective: * Chief Complaints: * ?1. 3 month f/u. * HPI: ?Constitutional:? Follow-up: ?Language spoken is Turkish, translation services not required ?This patient had a seminoma and is status post surgery. Patient has stage stage I disease CT scan of the abdomen and groin were negative for lymph nodes patient did see oncology at [facility]. The record of the oncology visit will be requested patient will be having a repeat CT scan in January ?Patient has type 1 diabetes on insulin pump patient goes to [facility] for follow-up ?History of Psoriatec arthritis skin rash is much better but there is a small area on the hand which may be problematic patient is on Enbrel patient also uses triamcinolone ointment as needed and a refill is given to the patient. * Medical History:??Sarthak 1 dm j oslin snce age 10, insulin pump Omni pod with Dexcom CGM, Psoratic arthritis. * Surgical History:??Fracture right ankle/plate rt ankle 1993 , sabacious cyst of the scalp . * Hospitalization/Major Diagno stic Procedure:??staph infectio 2016. * Family History:??Father: ali ve 87 yrs, heart disease,pacemaker.??Mother: alive 77 yrs, cardiac stenth/o pe.??Sister: alive.?? * Social History:?smoker quit mid 90 alchol 8- 10 week wine. * Medications:??Taking Simvast atin 20 MG Tablet 1 tablet in the evening Orally Once a day , Taking Lisinopril 10 MG Tablet 1 tablet Orally Once a day , Taking Levothyroxine Sodium 88 MCG Tablet 1 tablet in the morning on an empty stomach Orally Once a day , Taking Insulin Regular Human (Conc) 500 UNIT/ML Solution as directed Subcutaneous , Taking Enbrel 50 MG/ML Solution Prefilled Syringe 1 mL Subcutaneous Objective: * Vitals:??Temp:98.3F, HR:77/m in, BP:126/90mm Hg, Wt:206lbs, Ht: 69 in, BMI:30.42Index, Oxygen sat %:98%, Ht-cm: 175.26 cm, Wt-k.44 kg PT has been feeling a lag feeling. * Examination: ?General Examination: ?GENERAL APPEARANCE:??in no acute distress, well developed, well nourished.?NECK / THYROID:??neck supple, full range of motion, no cervical lymphadenopathy.?HEART:??no murmurs, regular rate and rhythm, S1, S2 normal.?LUNGS:??clear to auscultation bilaterally.?MALE GENITOURINARY:??Examination of the external genitalia is completely normal there is no lymphadenopathy scar is noted..?Examination of the skin indicates small area of redness may be psoriasis. 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 Notes: The patient is followed up at the [facility] blood sugars have been fairly decent and is below 7%? 3.??Hypothyroidism, unspecif ied?? Notes: Patient is on thyroid replacement therapy? 4.??Psoriatic arthritis?? Start Triamcinolone Acetonide Ointment, 0.1 %, 1 application, Externally, Twice a day, 30 days, 45, Refills 1.? Notes: Patient is on embrl. patient has a small rash on the dorsum of the hand left. A prescription for steroid cream is given to the patient? 5.??Others?? Notes: Time spent in encounter: more then 50% [...] with the patientxxxxxThis dictation was done with [employer] voice dictation system for compiling the notes. There may be errors in punctuation, grammar and spelling errors, that are unintentional that may have been missed during final editing of the document ? * Follow Up:??4 Months (Reason : fu) * Billing Information: * Visit Code:?? 56590 Office Visit, Est Pt., Level 4. * Procedure Codes:?? * Sign off status: Pending * Provider:??Emile Maldonado MD Date:??2023 History and Physical Notes * HPI (History of Present Illness) Category Sub-Category Detail Notes Category Not es Constitutional Follow-up: Language spoken is Turkish, translation services not required This patient had a seminoma and is status post surgery. Patient has stage stage I disease CT scan of the abdomen and groin were negative for lymph nodes patient did see oncology at [facility]. The record of the oncology visit will be requested patient will be having a repeat CT scan in January Patient has type 1 diabetes on insulin pump patient goes to [facility] clinic for follow-up History of Psoriatec arthritis skin rash is much better but there is a small area on the hand which may be problematic patient is on Enbrel patient also uses triamcinolone ointment as needed and a refill is given to the patient Examination Category Sub-Category Detail Notes Category Not es General Examination GENERAL APPEARANCE: in no acute distress, well developed, well nourished Examination of the skin indicates small area of redness may be psoriasis NECK / THYROID: neck supple, full ra nge of motion, no cervical lymphadenopathy HEART: no murmurs, regular rate and rhythm, S1, S2 normal LUNGS: clear to auscultatio n bilaterally MALE GENITOURINARY: Examination of the e xternal genitalia is completely normal there is no lymphadenopathy scar is noted.
--- OUTSIDE RECORDS SUMMARY | 2024-09-05 13:23 | XMS_ITS ---
Author Organization LOLY MALDONADO MD Address [address] [address] Care Team Providers Care Practicing Urologist Name Role Phone LOLY MALDONADO Primary Care Provider [phone] REASON FOR VISIT update Encounters Encounter Location Date Provider Diagnosis LOLY MALDONADO MD [address] [address] 11/13/2023 LOLY MALDONADO PLAN OF TREATMENT No Information Progress Notes * Yehuda CHRISTIANOB:[birth year] (48 yo M)Acc No.[id number]:11/13/2023 Patient:??Armando CHRISTIAN :1975?Age:48 Y?Sex:Armando schulz Address:[address], [place] [address] * true * Date:??
--- OUTSIDE RECORDS SUMMARY | 2024-09-05 13:24 | XMS_ITS ---
Author Organization EMILE GODWIN MD Address [address] [address] Care Team Providers Care Counter Molder Name Role Phone EMILE GODWIN Primary Care Provider [phone] REASON FOR VISIT 4 month Follow up Encounters Encounter Location Date Provider Diagnosis EMILE GODWIN MD [address] [address] 05/03/2024 [facility] PLAN OF TREATMENT No Information Progress Notes * Yehuda [birth year]OB:[birth year] (48 yo M)Acc No.[id number]:05/03/2024 Progress Notes Patient:??Armando CHRISTIAN josh Provider:??Emile Godwin MD :1975?Age:48 Y?Sex:Ma le Date:05/03/2024 Address:[address]-[address] Subjective: * Chief Complaints: * ?1. 4 month Follow up. * Medical History:?? Objective: Assessment: Plan: * Treatment: * Billing Information: * Visit Code:?? * Procedure Codes:?? * Sign off status: Pending * Provider:??Emile Godwin MD Date:??2024
[2024-09-05 13:26] LABS: MANUAL DIFF FLAG NO
[2024-09-05 13:40] LABS: Basophils Absolute Auto 0.1 X10*3/uL (0.0-0.2); Basophils Percent Auto 0.7 % (0-2); Eosinophils Absolute Auto 0.4 X10*3/uL (0.0-0.4); Eosinophils Percent Auto 5.3 % (0-4); Hematocrit 44.5 % (42.0-52.0); Hemoglobin 14.9 g/dl (14.0-18.0); Imm Gran Abs Auto 0.02 X10*3/uL (0.00-0.03); Imm Gran Pct Auto 0.3 % (0.0-0.4); Lymphocytes Absolute Auto 2.4 X10*3/uL (1.2-4.9); Lymphocytes Percent Auto 32.8 % (20-40); Mean Corpuscular HGB Conc 33.5 g/dl (31.0-36.0); Mean Corpuscular Volume 89.5 fL (80.0-98.0); Mean Platelet Volume 9.7 fL (9.4-12.4); Monocytes Absolute Auto 0.9 X10*3/uL (0.1-1.2); Neutrophils Absolute Auto 3.6 x10*3/uL (2.0-8.3); Neutrophils Percent Auto 48.9 % (45-73); Platelet Count 359 X10*3/uL (160-400); Red Blood Count 4.97 X10*6/uL (4.60-5.80); Red Cell Distribution Width 13.3 % (11.0-16.0); White Blood Count 7.3 X10*3/uL (4.8-10.8)
[2024-09-05 14:06] LABS: Alanine Aminotransferase 32 U/L (0-40); Albumin Level 4.4 g/dL (3.5-5.0); Alkaline Phosphatase 70 U/L (39-117); Anion Gap 12 (12-20); Aspartate Amino Transferase 40 U/L (5-37); Bilirubin Total 0.3 mg/dL (0.0-1.0); Blood Urea Nitrogen 17 mg/dL (9-16); C Reactive Protein 0.56 mg/dL (< or = 0.50); Carbon Dioxide 28 mmol/L (22-29); Chloride 107 mmol/L (96-108); Estimated Glomerular Filt Rate > 60; Glucose Random 46 mg/dL (60-115); Potassium 4.2 mmol/L (3.3-5.1); Sodium 143 mmol/L (135-145); Total Protein 8.3 g/dL (6.5-8.0)
[2024-09-05 14:14] LABS: HBS Num1 1.85 mIU/mL (0-7.99); HBc Num1 0.14 S/CO (0.00-0.79); HBsAGNum1 0.29 S/CO (0.00-0.99); Hepatitis A Antibody IgM 0.13 Index (0-0.79); Hepatitis B Core Antibody Nonreactive (Nonreactive); Hepatitis B Surface Antigen Negative (Negative); ~HepC Num1 0.13 S/CO (0.00-0.79); ~Hepatitis A Antibody IgM Nonreactive (Nonreactive); ~Hepatitis B Surface Antibody NONREACTIVE (Nonreactive); ~Hepatitis C Antibody Nonreactive (Nonreactive)
[2024-09-05 14:18] LABS: Erythrocyte Sedimentation Rate 17 MM/HR (0-15)
[2024-09-07 20:33] LABS: TS Negative Control Passed; TS Panel A 0; TS Panel B 0; TS Positive Control Passed; TSpotTB Negative (Negative)
== END 2024-09-05 11:53 | disposition home or self-care (01) ==
LOC: HO.10HDL 11:52
PROVIDERS: Visit Provider Student in an Organized Health Care Education/Training Program
DX: L40.50 Arthropathic psoriasis, unspecified (principal)
CPT/HCPCS: 36415; 80053; 85025; 85652; 86140; 86481; 86704; 86706; 86709; 86803; 87340

== ENCOUNTER 2024-12-31 13:15 | Outpatient (REF) | payer OTHER, SELFPAY ==
[2024-12-31 17:43] LABS: MANUAL DIFF FLAG NO
[2024-12-31 17:46] LABS: Hematocrit 40.2 % (42.0-52.0); Hemoglobin 13.1 g/dl (14.0-18.0); Imm Gran Abs Auto 0.01 X10*3/uL (0.00-0.03); Imm Gran Pct Auto 0.2 % (0.0-0.4); Lymphocytes Absolute Auto 1.5 X10*3/uL (1.2-4.9); Mean Corpuscular HGB Conc 32.6 g/dl (31.0-36.0); Mean Corpuscular Hemoglobin 30.4 pg (27.0-33.0); Mean Corpuscular Volume 93.3 fL (80.0-98.0); NRBC Abs Auto 0.000 X10*3/uL (0.0-0.012); NRBC Pct Auto 0.0 /100WBC (0.0-0.2); Platelet Count 321 X10*3/uL (160-400); Red Blood Count 4.31 X10*6/uL (4.60-5.80); White Blood Count 6.2 X10*3/uL (4.8-10.8)
[2024-12-31 18:20] LABS: Alanine Aminotransferase 28 U/L (0-40); Albumin Level 4.1 g/dL (3.5-5.0); Alkaline Phosphatase 67 U/L (39-117); Anion Gap 11 (12-20); Aspartate Amino Transferase 38 U/L (5-37); Blood Urea Nitrogen 16 mg/dL (9-16); Calcium 9.2 mg/dL (8.4-10.2); Carbon Dioxide 27 mmol/L (22-29); Chloride 105 mmol/L (96-108); Estimated Glomerular Filt Rate > 60; Potassium 4.2 mmol/L (3.3-5.1); Sodium 139 mmol/L (135-145); Total Protein 7.2 g/dL (6.5-8.0)
== END 2024-12-31 13:16 | disposition home or self-care (01) ==
LOC: HO.HKASLDS 13:15
PROVIDERS: PCP Internal Medicine; Visit Provider Student in an Organized Health Care Education/Training Program
DX: Z51.81 Encounter for therapeutic drug level monitoring (principal); L40.50 Arthropathic psoriasis, unspecified; Z79.620 Long term (current) use of immunosuppressive biologic; Z79.899 Other long term (current) drug therapy
CPT/HCPCS: 36415; 80053; 85025; 85652; 86140; 99212

== ENCOUNTER 2024-12-31 13:15 | Outpatient (AMB) | payer OTHER, SELFPAY ==
[2024-12-31 13:19] VITALS: BP 124/70; PULSE 77; O2SAT 98; BMI 28.2
--- NOTE | 2024-12-31 13:19 | A.OFFVIS_ITS ---
Vital Signs 12/31/24 13:19 Height 5 ft 9 in Weight 190 lb 14.725 oz BMI 28.2 BP 124/70 Blood Pressure Location Lt brachial Position Sitting Pulse 77 Pulse Source Pulse Oximeter Pulse Oximetry (%) 98 Oxygen Delivery Method Room Air Intake Visit Reasons: PsA/PsO Enbrel Intake Note: Patient presents for follow up on PsA/Pso Enbrel today. 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 Manzano - on Enbrel 50 mg weekly - diagnosed with testicular cancer over the summer and had right orchiectomy - did not require chemoradiation and receives active surveillance - doing well in terms of his psoriasis and psoriatic arthritis - gets a flare usually just before his Enbrel shot is due with intermittent swelling of his fingers and toes Today - On Enbrel 50mg SC weekly - Continues to do well - Will sometime will get stress flares but nothing compared to the initial presentation - Complains of intermittent muscle soreness compared to the feeling of after a heavy work out - Minimal PsO Rheumatologic History: PsA +RF+++CCP physical presentation was thought to be more consistent with psoriatic arthritis. Diagnosed and started on Enbrel May 2014. 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 Review of Systems Const Details: Review of Systems Constitutional: Denies fever, chills, weight loss ENT: Denies vision changes, eye pain or eye redness, dental caries, dry mouth GI: Denies nausea, vomiting, diarrhea, abdominal pain, change in BM Pulm: Denies SOB, HINOJOSA, hemoptysis, wheezing Cards: Denies chest pain, palpitations Skin: Denies Raynaud's, nail changes, photosensitivity, FINISH OPENER: Denies headaches, weakness, paresthesias, recurrent falls MSK: as per HPI All other systems reviewed and are unremarkable except noted above Physical Exam Exam Exam: Vital signs reviewed Physical Examination CONSTITUITIONAL Patient alert and cooperative. Well appearing and in no apparent painful distress MSK Hands * Right Hand: Able to make a fist. No swelling or tenderness to palpation of the MCPs, PIPs or DIPs. * Left Hand: Able to make a fist. No swelling or tenderness to palpation of the MCPs, PIPs or DIPs. Wrists * Right Wrist: Full ROM to flexion and extension. No swelling or TTP * Left Wrist: Full ROM to flexion and extension. No swelling or TTP Elbows * Right Elbow: Full ROM. No swelling or TTP. No TTP of the medial epicondyle. No TTP of the lateral epicondyle * Left Elbow: Full ROM. No swelling or TTP. No TTP of the medial epicondyle. No TTP of the lateral epicondyle Shoulders * Right shoulder: Full ROM. No swelling noted. No TTP of the AC joint. No TTP of the subacromial bursa. No TTP of the posterior shoulder * Left shoulder: Full ROM. No swelling noted. No TTP of the AC joint. No TTP of the subacromial bursa. No TTP of the posterior shoulder Knees * Right knee: Full ROM. No swelling noted. No TTP of the knee joint line. No TTP of pes anserine bursa * Left knee: Full ROM. No swelling noted. No TTP of the knee joint line. No TTP of pes anserine bursa. Ankles * Right ankle: Good ankle dorsiflexion and plantar flexion. No swelling. No TTP of the ankle joint * Left ankle: Good ankle dorsiflexion and plantar flexion. No swelling. No TTP of the ankle joint * No achilles enthesitis bilaterally Feet * Right foot: Negative squeeze test * Left foot: Negative squeeze test Tender points? * No tenderness to palpation of the bilateral trapezius, supraspinatus, anterior costochondral junctions, bilateral suboccipital muscle insertions SKIN Small PsO patch on the dorsum of the left hand Vital Signs: Last Vital Signs Pulse 77 12/31/24 13:19 BP 124/70 12/31/24 13:19 Pulse Ox 98 12/31/24 13:19 Oxygen Delivery Method Room Air 12/31/24 13:19 BMI result Body Mass Index 28.2 Results Reviewed Results Reviewed: Laboratory Tests 08/08/23 02/07/24 09/05/24 12:27 10:00 11:55 WBC 7.3 RBC 4.97 Hgb 14.9 Hct 44.5 Plt Count 359 ESR 11 17 H Sodium 143 Potassium 4.2 Chloride 107 Carbon Dioxide 28 BUN 17 H Creatinine 1.07 AST 40 H ALT 32 C-Reactive Protein 0.45 0.56 H 25-OH Vitamin D Total 17 L Laboratory Tests 09/05/24 11:55 Hepatitis A IgM Ab Nonreactive Hep Bs Antigen Negative Hep Bs Antibody NONREACTIVE Hep B Core Total Ab Nonreactive Hepatitis C Ab (EIA) Nonreactive TB Test (T-Spot) Com Negative XR Right Hand 07/2020 FINDINGS: No acute fracture or dislocation. Complete loss of joint space with osseous fusion redemonstrated at the 2nd distal interphalangeal joint. Joint space narrowing redemonstrated at the 5th distal interphalangeal joint, unchanged. No significant marginal osteophytes. No osseous erosion. Normal carpal alignment. No abnormal soft tissue calcification. IMPRESSION: No acute osseous abnormality. Fusion of the 2nd distal interphalangeal joint and joint space narrowing at the 5th distal interphalangeal joint are unchanged. Assessment & Plan Assessment & Plan (1) Psoriatic arthritis: Comment: +RF+++CCP physical presentation was thought to be more consistent with psoriatic arthritis. Diagnosed and started on Enbrel May 2014. Effective Code(s): L40.50 - Arthropathic psoriasis, unspecified Category: Medical Plan: #PsO/PsA Patient is a 49y.o. male with PsO c/b PsA here today for follow up Currently in remission Complained of muscle soreness Recommended doing a dairy of the doreness related to his blood sugars and Enbrel administration Plan - Enbrel 50mg SC weekly - Labs today: CBC, CMP, ESR, CRP - RTC 6 months - Labs before visit: CBC, CMP, ESR, CRP (2) Encounter for monitoring of etanercept therapy: Code(s): Z51.81 - Encounter for therapeutic drug level monitoring; Z79.620 - superintendent terminal (current) use of immunosuppressive biologic Plan: #Long-term Use of TNF Inhibitors: Etanercept Discussed with the patient the benefits and risks of TNF inhibitors for the management of the rheumatic condition Benefits include reduce pain, maintenance of remission and reduction of flares as well as progression of the disease Risks include injection sites/infusion reactions, serious infections (such as bacterial infections, opportunistic infections), malignancy, delaminating syndromes, autoimmune phenomena, CHF exacerbations, palmar plantar psoriasis and cytopenias Recommended rotating injection sites, and holding medication during and for up to 1 week after resolution of a febrile illness or open skin wound Plan This is my first visit with the patient. I spent 40 minutes reviewing the record and labs, taking a history, examining the patient, discussing the treatment plan, ordering diagnostic work up and documenting in the medical record Orders: Orders Comprehensive Met. Panel Today Z79.899 - Other intermediate designer (current) drug therapy C Reactive Protein Today Z79.899 - Other intermediate designer (current) drug therapy Complete Blood Count Auto Diff Today Z79.899 - Other long-term (current) drug therapy Erythrocyte Sedimentation Rate Today Z79.899 - Other long-term (current) drug therapy Coding Level of Care Code Est Pt Level 5 (67022) Complex EM visit Add On G2211 Diagnoses Psoriatic arthritis L40.50 Encounter for monitoring of etanercept therapy Z51.81; Z79.620
--- OUTSIDE RECORDS SUMMARY | 2024-12-31 14:33 | XMS_ITS | Clinical Summary ---
Author Organization [facility] Address [address] [place] [id number] Phone Care Team Providers Care Telephone Ad Taker Name Role Phone Emile Godwin MD Primary Care Provider [phone] Social History Tobacco Use Types Packs/Day Years Used Date Smoking Tobacco: Never Assessed Education Answer Date Recorded Are you interested in more education? Not on judith e 09/14/2023 Are you concerned about learning? Not on file 09/14/2023 No 09/14/2023 No 09/14/2023 Digital Access Answer Date Recorded No 09/14/2023 No 09/14/2023 Reliable internet access at home? Not on file 09/14/2023 Device with a working camera? Not on file Sex and Gender Information Value Date Recorded Sex Assigned at Not on file Legal Sex Male 11:16 AM EST Gender Identity Not on file Sexual Orientation Not on file Plan of Treatment Health Maintenance Due Date Last Done Comments Adult Td,Tdap Booster 1974 LIPID PANEL 1974 DEPRESSION SCREENING 1986 SMOKING Hx and SMOKELESS TOBACCO SCREENING 09/29/1987 HEPATITIS C SCREENING 1992 HIV ONE-TIME SCREENING (18-6 5 YEARS) 1992 COLOGUARD 09/29/2019 COLONOSCOPY 09/29/2019 COLORECTAL CANCER SCREENING 09/29/2019 FIT TEST 09/29/2019 FOBT 09/29/2019 SIGMOIDOSCOPY 09/29/2019 VIRTUAL COLONOSCOPY 09/29/2019 COVID-19 VACCINE (2023-2 5 season) 2023 05/08/2021, 07/04/2020 PNEUMOCOCCAL VACCINES (50+ years) (1 of 1 - PCV) 2024 ZOSTER VACCINES (1 of 2) 2024 HEPATITIS A VACCINES Aged Out No long er eligible based on patient's age to complete this topic HIB VACCINES Aged Out No longer eligi ble based on patient's age to complete this topic MENINGOCOCCAL VACCINES (ACWY) Aged Out No longer eligible based on patient's age to complete this topic MENINGOCOCCAL VACCINES (B) Aged Out N o longer eligible based on patient's age to complete this topic Medical Devices Not on file [facility] Care Teams Telephone Ad Taker Relationship Specialty Start Date End Date mEile Godwin MD [address] [address] PCP - General Internal Medicine 09/14/23 Additional Source Comments The information contained in this document represents components of the legal health record. It is not the complete legal health record[facility]
== END 2024-12-31 14:15 | disposition home or self-care (01) ==
LOC: HO.RHES 13:16
PROVIDERS: PCP Internal Medicine; Visit Provider Student in an Organized Health Care Education/Training Program
DX: L40.50 Arthropathic psoriasis, unspecified (principal); Z51.81 Encounter for therapeutic drug level monitoring; Z79.620 Long term (current) use of immunosuppressive biologic
CPT/HCPCS: 99215